=== PATIENT | male | born 1985 | race Caucasian/White ===

== ENCOUNTER 2021-05-17 00:20 | Emergency (ER) | payer OTHER ==
[2021-05-17 00:36] LABS: HEMOGLOBIN 14.7 gm/dl (14.0-17.5); RED BLOOD COUNT 4.88 M/UL (4.20-5.50); WHITE BLOOD COUNT 7.5 K/UL (4.5-11.0)
== END 2021-05-17 02:05 | disposition home or self-care (01) ==
LOC: ER1 00:20
PROVIDERS: Emergency Medicine
DX: R55 Syncope and collapse (principal); R39.198 Other difficulties with micturition; F17.210 Nicotine dependence, cigarettes, uncomplicated
CPT/HCPCS: 71045; 73030; 83880; 85025; 93005; 99284